=== PATIENT | male | born 1960 | race African-American/Black ===

== ENCOUNTER 2017-12-01 17:21 | Inpatient (IN) ==
[2017-12-01] MEDS ORDERED: DEXAMETHASONE 4 MG/1 ML VIAL IM STA (19:01)
[2017-12-01] MEDS ORDERED: cefTRIAXone 1,000 MG VIAL IM STA (19:01)
[2017-12-01] MEDS ORDERED: LISINOPRIL 10 MG TABLET PO STA (19:01)
[2017-12-01] MEDS ORDERED: DEXAMETHASONE 4 MG/1 ML VIAL ONE (19:06)
[2017-12-01] MEDS ORDERED: cefTRIAXone 1,000 MG VIAL ONE (19:06)
[2017-12-01] MEDS ORDERED: LISINOPRIL 10 MG TABLET ONE (19:06)
[2017-12-01 19:42] LABS: Basophils % 0.4 % (0.0-0.8); Eosinophils # 0.2 10*3/uL (0.0-0.87); Eosinophils % 2.1 % (0.00-10.9); Hematocrit 42.4 VOL% (42.0-52.0); Hemoglobin 13.5 GM/DL (14.0-18.0); Immature Granulocytes % 0.2 %; Immature Granulocytes Absolute 0.02 #; Lymphocytes # 1.3 10*3/uL (1.4-4.0); Lymphocytes % 16.6 % (21.2-54.2); Mean Corpuscular HGB Conc 31.8 GM/DL (32-36); Mean Corpuscular Hemoglobin 27 PG (27-34); Mean Corpuscular Volume 85.5 FL (87-102); Monocytes # 0.4 10*3/uL (0.11-0.8); Monocytes % 5.5 % (1.7-12.7); Neutrophils % 75.2 % (38.7-73.9); Platelet Count 283 T/CUMM (130-400); Red Blood Count 4.96 MC/CUMM (3.8-5.5)
[2017-12-01] MEDS ORDERED: ACETAMINOPHEN 500 MG TABLET ONE (19:43)
[2017-12-01] MEDS ORDERED: ACETAMINOPHEN 500 MG TABLET PO STA (19:45)
[2017-12-01 20:00] LABS: Calcium 8.6 MG/DL (8.5-10.1); Magnesium 1.9 MG/DL (1.8-2.4); Osmolality,Calculated 275.7 MOS/KG (273-304); Potassium 4.1 MMOL/L (3.5-5.1)
[2017-12-01] MEDS ORDERED: hydrALAZINE 20 MG/1 ML VIAL IV STA (20:18)
[2017-12-01] MEDS ORDERED: hydrALAZINE 20 MG/1 ML VIAL ONE (20:34)
[2017-12-01] MEDS ORDERED: ALBUTEROL/IPRATROPIUM 3 ML NEB RESP TX PRN (21:01)
[2017-12-02] MEDS ORDERED: DEXTROSE 50% 25 GM/50 ML VIAL IV PRN (00:06)
[2017-12-02] MEDS ORDERED: GLUCAGON 1 MG VIAL IM PRN (00:06)
[2017-12-02] MEDS ORDERED: hydrALAZINE 20 MG/1 ML VIAL IV PRN (00:07)
[2017-12-02] MEDS: ENOXAPARIN 40 MG/0.4 ML SYRINGE SUBCUT SCH ×2 (01:02→21:56)
[2017-12-02] MEDS: AZITHROMYCIN INJ 500 MG in SODIUM CHLORIDE 0.9% 250 ML IV SCH (01:05)
[2017-12-02 03:03] LABS: Basophils % 0.5 % (0.0-0.8); Eosinophils # 0.2 10*3/uL (0.0-0.87); Eosinophils % 3.6 % (0.00-10.9); Hemoglobin 12.9 GM/DL (14.0-18.0); Immature Granulocytes % 0.2 %; Immature Granulocytes Absolute 0.01 #; Lymphocytes # 1.2 10*3/uL (1.4-4.0); Lymphocytes % 20.6 % (21.2-54.2); Mean Corpuscular HGB Conc 32.3 GM/DL (32-36); Mean Corpuscular Hemoglobin 27 PG (27-34); Mean Corpuscular Volume 84.2 FL (87-102); Mean Platelet Volume 10.2 FL (9.6-12.0); Monocytes # 0.4 10*3/uL (0.11-0.8); Monocytes % 6.6 % (1.7-12.7); Neutrophils # 3.8 10*3/uL (1.4-7.4); Neutrophils % 68.5 % (38.7-73.9); Platelet Count 268 T/CUMM (130-400); Red Blood Count 4.75 MC/CUMM (3.8-5.5); Red Cell Distribution Width 14.5 % (9.3-17.3); White Blood Count 5.6 T/CUMM (4-12)
[2017-12-02 03:28] LABS: Calcium 8.4 MG/DL (8.5-10.1); Osmolality,Calculated 283.1 MOS/KG (273-304); Potassium 3.7 MMOL/L (3.5-5.1)
[2017-12-02] MEDS: LISINOPRIL 20 MG TABLET PO SCH (08:11)
[2017-12-02] MEDS: CARVEDILOL 3.125 MG TABLET PO SCH ×2 (08:11→17:14)
[2017-12-02] MEDS: ASPIRIN CHEW 81 MG TABLET PO SCH (08:11)
[2017-12-02] MEDS: INSULIN LISPRO 100 UNIT/ML SUBCUT SCH ×4 (08:13→21:57)
[2017-12-02] MEDS ORDERED: LISINOPRIL 10 MG TABLET PO SCH (09:00)
[2017-12-02] MEDS ORDERED: DAPAGLIFLOZIN 10 MG PO SCH (09:00)
[2017-12-02] MEDS: cefTRIAXone 1,000 MG in SYRINGE 1 EACH IV SCH (17:14)
[2017-12-02] MEDS: ATORVASTATIN 80 MG TABLET PO SCH (21:57)
[2017-12-03] MEDS: AZITHROMYCIN INJ 500 MG in SODIUM CHLORIDE 0.9% 250 ML IV SCH (01:02)
[2017-12-03] MEDS: ASPIRIN CHEW 81 MG TABLET PO SCH (09:11)
[2017-12-03] MEDS: LISINOPRIL 20 MG TABLET PO SCH (09:11)
[2017-12-03] MEDS: CARVEDILOL 3.125 MG TABLET PO SCH ×2 (09:11→17:09)
[2017-12-03] MEDS: INSULIN LISPRO 100 UNIT/ML SUBCUT SCH ×4 (09:11→21:40)
[2017-12-03] MEDS: cefTRIAXone 1,000 MG in SYRINGE 1 EACH IV SCH (17:08)
[2017-12-03] MEDS: ATORVASTATIN 80 MG TABLET PO SCH (21:40)
[2017-12-03] MEDS: ENOXAPARIN 40 MG/0.4 ML SYRINGE SUBCUT SCH (21:40)
[2017-12-04] MEDS: AZITHROMYCIN INJ 500 MG in SODIUM CHLORIDE 0.9% 250 ML IV SCH (01:48)
[2017-12-04] MEDS: LISINOPRIL 20 MG TABLET PO SCH (09:33)
[2017-12-04] MEDS: CARVEDILOL 3.125 MG TABLET PO SCH (09:33)
[2017-12-04] MEDS: ASPIRIN CHEW 81 MG TABLET PO SCH (09:33)
[2017-12-04] MEDS: INSULIN LISPRO 100 UNIT/ML SUBCUT SCH ×2 (09:34→11:50)
[2017-12-04 12:09] VITALS: BP 145/96
== END 2017-12-04 12:05 | disposition home or self-care (01) | DRG 202 ==
LOC: N.ED 17:21 → N.EDINP 20:58 → SUATTDRO 20:58 → N.5E 23:02
PROVIDERS: ADMIT Family Medicine; ATTEND Internal Medicine

== ENCOUNTER 2018-02-19 14:06 | Observation (INO) ==
[2018-02-19] MEDS ORDERED: ENOXAPARIN 100 MG/ML SYRINGE SUBCUT STA (14:35)
[2018-02-19] MEDS ORDERED: NITROGLYCERIN SL 0.4 MG TABLET SL PRN (14:35)
[2018-02-19] MEDS ORDERED: ASPIRIN 325 MG TABLET PO STA (14:35)
[2018-02-19 14:58] LABS: Basophils % 0.6 % (0.0-0.8); Eosinophils # 0.2 10*3/uL (0.0-0.87); Hematocrit 42.9 VOL% (42.0-52.0); Hemoglobin 13.4 GM/DL (14.0-18.0); Immature Granulocytes % 0.2 %; Immature Granulocytes Absolute 0.01 #; Lymphocytes # 2.1 10*3/uL (1.4-4.0); Lymphocytes % 40.2 % (21.2-54.2); Mean Corpuscular HGB Conc 31.2 GM/DL (32-36); Mean Corpuscular Hemoglobin 27 PG (27-34); Mean Corpuscular Volume 85.1 FL (87-102); Mean Platelet Volume 10.9 FL (9.6-12.0); Monocytes # 0.3 10*3/uL (0.11-0.8); Monocytes % 6.1 % (1.7-12.7); Neutrophils # 2.6 10*3/uL (1.4-7.4); Neutrophils % 48.9 % (38.7-73.9); Platelet Count 232 T/CUMM (130-400); Red Blood Count 5.04 MC/CUMM (3.8-5.5); Red Cell Distribution Width 13.8 % (9.3-17.3); White Blood Count 5.3 T/CUMM (4-12)
[2018-02-19] MEDS ORDERED: ASPIRIN 325 MG TABLET ONE (14:58)
[2018-02-19] MEDS ORDERED: ENOXAPARIN 80 MG/0.8 ML SYRINGE SUBCUT ONE (14:59)
[2018-02-19] MEDS ORDERED: LABETALOL 20 MG/4 ML SYRINGE IV STA (14:59)
[2018-02-19] MEDS ORDERED: ENOXAPARIN 100 MG/ML SYRINGE SUBCUT ONE (15:00)
[2018-02-19] MEDS ORDERED: LABETALOL 20 MG/4 ML SYRINGE IV ONE (15:00)
[2018-02-19 15:18] LABS: Albumin 3.3 G/DL (3.4-5.0); Bilirubin,Total 0.8 MG/DL (0.2-1.0); Calcium 8.6 MG/DL (8.5-10.1); Osmolality,Calculated 273.7 MOS/KG (273-304); Total Protein 7.9 G/DL (6.4-8.3)
[2018-02-19 15:45] LABS: Potassium 5.1 MMOL/L (3.5-5.1)
[2018-02-19] MEDS ORDERED: ONDANSETRON 4 MG/2 ML VIAL IV PRN (16:53)
[2018-02-19 20:36] LABS: Troponin I Only < 0.015 NG/ML (0.00-0.045)
[2018-02-19] MEDS: ALUMINUM/MAGNES/SIMETH MAX STR 30 ML UDCUP PO SCH ×2 (20:37)
[2018-02-19] MEDS: ATORVASTATIN 80 MG TABLET PO SCH (20:38)
[2018-02-19] MEDS: CARVEDILOL 3.125 MG TABLET PO SCH (20:38)
[2018-02-19] MEDS: PANTOPRAZOLE 40 MG TABLET PO SCH (20:38)
[2018-02-20] MEDS: hydrALAZINE 20 MG/1 ML VIAL IV PRN ×3 (00:06→12:15)
[2018-02-20] MEDS ORDERED: ACETAMINOPHEN 325 MG TABLET ONE (02:07)
[2018-02-20] MEDS: ALUMINUM/MAGNES/SIMETH MAX STR 30 ML UDCUP PO SCH ×4 (03:00→13:48)
[2018-02-20 05:35] LABS: Basophils % 0.4 % (0.0-0.8); Eosinophils # 0.2 10*3/uL (0.0-0.87); Eosinophils % 2.9 % (0.00-10.9); Hematocrit 39.3 VOL% (42.0-52.0); Hemoglobin 12.9 GM/DL (14.0-18.0); Immature Granulocytes % 0.4 %; Immature Granulocytes Absolute 0.02 #; Lymphocytes # 2.1 10*3/uL (1.4-4.0); Lymphocytes % 37.6 % (21.2-54.2); Mean Corpuscular HGB Conc 32.8 GM/DL (32-36); Mean Corpuscular Hemoglobin 27 PG (27-34); Mean Corpuscular Volume 81.2 FL (87-102); Mean Platelet Volume 10.9 FL (9.6-12.0); Monocytes # 0.3 10*3/uL (0.11-0.8); Monocytes % 5.6 % (1.7-12.7); Neutrophils # 2.9 10*3/uL (1.4-7.4); Neutrophils % 53.1 % (38.7-73.9); Platelet Count 250 T/CUMM (130-400); Red Blood Count 4.84 MC/CUMM (3.8-5.5); Red Cell Distribution Width 13.9 % (9.3-17.3); White Blood Count 5.5 T/CUMM (4-12)
[2018-02-20 06:10] LABS: Calcium 8.6 MG/DL (8.5-10.1); Osmolality,Calculated 280.4 MOS/KG (273-304)
[2018-02-20 06:15] LABS: Troponin I Only < 0.015 NG/ML (0.00-0.045)
[2018-02-20] MEDS: ASPIRIN CHEW 81 MG TABLET PO SCH (08:49)
[2018-02-20] MEDS: CARVEDILOL 3.125 MG TABLET PO SCH (08:49)
[2018-02-20] MEDS: LISINOPRIL 20 MG TABLET PO SCH (08:49)
[2018-02-20] MEDS: PANTOPRAZOLE 40 MG TABLET PO SCH ×2 (08:50→20:45)
[2018-02-20] MEDS ORDERED: PANTOPRAZOLE 40 MG TABLET PO SCH (09:00)
[2018-02-20] MEDS ORDERED: FUROSEMIDE 20 MG TABLET PO SCH (09:00)
[2018-02-20] MEDS: ACETAMINOPHEN 325 MG TABLET PO PRN ×2 (13:05→20:39)
[2018-02-20] MEDS ORDERED: CLOPIDOGREL 300 MG TABLET PO ONE ×2 (14:00→16:30)
[2018-02-20] MEDS: CARVEDILOL 6.25 MG TABLET PO SCH (17:44)
[2018-02-20] MEDS: hydrALAZINE 25 MG TABLET PO SCH (20:45)
[2018-02-20] MEDS: ATORVASTATIN 80 MG TABLET PO SCH (20:45)
[2018-02-20] MEDS: FLUTICASONE 50 MCG NASAL SPRAY 16 GM BOTTLE BOTH NARES SCH (23:07)
[2018-02-21 04:52] LABS: Basophils % 0.2 % (0.0-0.8); Eosinophils # 0.2 10*3/uL (0.0-0.87); Eosinophils % 4.3 % (0.00-10.9); Hematocrit 43.2 VOL% (42.0-52.0); Hemoglobin 13.8 GM/DL (14.0-18.0); Immature Granulocytes % 0.2 %; Immature Granulocytes Absolute 0.01 #; Lymphocytes # 1.1 10*3/uL (1.4-4.0); Lymphocytes % 26.3 % (21.2-54.2); Mean Corpuscular HGB Conc 31.9 GM/DL (32-36); Mean Corpuscular Hemoglobin 27 PG (27-34); Mean Corpuscular Volume 82.9 FL (87-102); Mean Platelet Volume 10.7 FL (9.6-12.0); Monocytes # 0.3 10*3/uL (0.11-0.8); Monocytes % 6.4 % (1.7-12.7); Neutrophils # 2.6 10*3/uL (1.4-7.4); Neutrophils % 62.6 % (38.7-73.9); Platelet Count 245 T/CUMM (130-400); Red Blood Count 5.21 MC/CUMM (3.8-5.5); Red Cell Distribution Width 13.9 % (9.3-17.3); White Blood Count 4.2 T/CUMM (4-12)
[2018-02-21 05:17] LABS: Calcium 8.9 MG/DL (8.5-10.1); Osmolality,Calculated 284.4 MOS/KG (273-304); Potassium 4.1 MMOL/L (3.5-5.1)
[2018-02-21 05:23] LABS: Risk Ratio 5.23; VLDL CHOLESTEROL 15.2 MG/DL
[2018-02-21 07:43] VITALS: BP 119/88
[2018-02-21] MEDS ORDERED: SPIRONOLACTONE 25 MG TABLET PO SCH (09:00)
[2018-02-21] MEDS: ASPIRIN CHEW 81 MG TABLET PO SCH (09:00)
[2018-02-21] MEDS: CARVEDILOL 6.25 MG TABLET PO SCH (09:00)
[2018-02-21] MEDS: LISINOPRIL 20 MG TABLET PO SCH (09:00)
[2018-02-21] MEDS: PANTOPRAZOLE 40 MG TABLET PO SCH (09:00)
[2018-02-21] MEDS ORDERED: FUROSEMIDE 40 MG/5 ML UDCUP PO SCH (09:00)
[2018-02-21] MEDS ORDERED: CLOPIDOGREL 75 MG TABLET PO SCH (09:00)
[2018-02-21] MEDS: hydrALAZINE 25 MG TABLET PO SCH (09:00)
[2018-02-21] MEDS: FLUTICASONE 50 MCG NASAL SPRAY 16 GM BOTTLE BOTH NARES SCH (09:02)
== END 2018-02-21 12:20 | disposition home or self-care (01) ==
LOC: N.EDINP 14:06 → N.ED 14:06 → N.EDINP 18:57 → N.2E 19:08
PROVIDERS: ADMIT Internal Medicine; ATTEND Internal Medicine